=== PATIENT | male | born 1950 | race Caucasian/White ===

== ENCOUNTER 2021-08-30 10:56 | Emergency (ER) | payer MEDICARE, BC ==
[2021-08-30] MEDS ORDERED: Sodium Chloride 0.9% 10 ML Syringe FLUSH PRN (11:04)
[2021-08-30 11:49] LABS: ANION GAP 13.4 mmol/L (5-15); CHLORIDE,CL 105 mmol/L (98-107); SODIUM,NA 139 mmol/L (136-145)
== END 2021-08-30 12:22 | disposition home or self-care (01) ==
LOC: KA.ED 10:56
DX: R55 Syncope and collapse (principal); R00.2 Palpitations; Z88.6 Allergy status to analgesic agent; Z79.899 Other long term (current) drug therapy
CPT/HCPCS: 36415; 70450; 71045; 80053; 83735; 84484; 85025; 93010; 99284; 99284-25